=== PATIENT | male | born 1960 | race Caucasian/White ===

== ENCOUNTER 2024-08-11 09:34 | Emergency (ER) | payer SELFPAY ==
[~2024-08-11] VITALS: Ht 182.9 cm; Wt 77.1 kg
[2024-08-11 10:00] VITALS: BP 154/94
[2024-08-11 10:36] LABS: BASOPHILS ABSOLUTE AUTO 0.04 K/mm3 (0.00-0.23); BASOPHILS PERCENT AUTO 1 % (0-2); EOSINOPHILS ABSOLUTE AUTO 0.34 K/mm3 (0.00-0.68); EOSINOPHILS PERCENT AUTO 7 % (0-6); Hematocrit 45.7 % (37.0-53.0); Hemoglobin 15.2 g/dL (13.5-17.5); IMMATURE GRAN ABSOLUTE AUTO 0.01 K/mm3 (0.00-0.10); IMMATURE GRAN PERCENT AUTO 0 % (0-1); LYMPHOCYTES ABSOLUTE AUTO 1.61 K/mm3 (0.84-5.20); LYMPHOCYTES PERCENT AUTO 31 % (21-46); MONOCYTES ABSOLUTE AUTO 0.23 K/mm3 (0.16-1.47); MONOCYTES PERCENT AUTO 4 % (4-13); Mean Corpuscular HGB 29.7 pg (26.0-34.0); Mean Corpuscular HGB Conc 33.3 g/dL (31.5-36.5); Mean Corpuscular Volume 89 fL (80-100); Mean Platelet Volume 9.9 fL (9.1-12.4); NEUTROPHILS ABSOLUTE AUTO 2.99 K/mm3 (1.96-9.15); NEUTROPHILS PERCENT AUTO 57 % (41-73); Platelet Count 235 K/mm3 (150-400); RDW Coefficient Variation 13.1 % (11.7-14.2); Red Blood Cell Count 5.12 M/mm3 (4.30-5.90); White Blood Cell Count 5.22 K/mm3 (4.00-11.30)
[2024-08-11 10:59] LABS: Albumin, Blood 3.6 g/dL (3.4-5.0); Bilirubin, Total 0.5 mg/dL (0.1-1.0); Bun/Creatinine Ratio 16.1 (12.0-20.0); Calcium, Blood 9.1 mg/dL (8.5-10.1); Creatinine, Blood 0.93 mg/dL (0.60-1.20); Globulin, Blood 3.6 g/dL (2.2-4.0); Potassium, Blood 4.3 mmol/L (3.5-5.5); Total Protein, Blood 7.2 g/dL (6.4-8.2)
== END 2024-08-11 12:17 | disposition home or self-care (01) ==
LOC: ER 09:34
PROVIDERS: Emergency Medicine
DX: M54.12 Radiculopathy, cervical region (principal); R07.9 Chest pain, unspecified; Z88.0 Allergy status to penicillin
CPT/HCPCS: 71046; 72040; 80053; 84484; 85025; 85379; 93005; 93010; 99283-25